=== PATIENT | female | born 1990 | race Two or more races ===

== ENCOUNTER 2022-09-04 17:30 | Observation (INO) | payer SELFPAY ==
[~2022-09-04] VITALS: Ht 62 cm; Wt 66.7 kg
[2022-09-04] MEDS ORDERED: PREN-96 PO (18:13)
[2022-09-04] MEDS ORDERED: TERBUTALINE SULFATE 1 MG/ML 1ML VIAL SC SCH (18:30)
== END 2022-09-04 19:07 | disposition home or self-care (01) ==
LOC: LDRP 17:30
PROVIDERS: ADMIT Obstetrics & Gynecology; ATTEND Obstetrics & Gynecology
DX: O60.03 Preterm labor without delivery, third trimester (principal); Z3A.33 33 weeks gestation of pregnancy; Z91.040 Latex allergy status
CPT/HCPCS: 59025; 81002; 94760; 96372; G0378; J3105

== ENCOUNTER 2022-10-23 08:56 | Observation (INO) | payer MEDICAID, OTHER ==
[~2022-10-23 08:56] MED LIST: PREN-96 PO
== END 2022-10-23 13:31 | disposition home or self-care (01) ==
LOC: LDRP 11:11 → UNDOADMOB 11:15 → UNDODISOB 13:31
PROVIDERS: ADMIT Obstetrics & Gynecology; ATTEND Obstetrics & Gynecology
DX: O62.9 Abnormality of forces of labor, unspecified (principal); Z3A.40 40 weeks gestation of pregnancy
CPT/HCPCS: 59025; 76818; 81002; 94760; G0378

== ENCOUNTER 2022-10-25 11:06 | Observation (INO) | payer MEDICAID | END 2022-10-25 13:11 | disposition home or self-care (01) | LOC: LDRP 11:06 → UNDOADMOB 11:08 → UNDODISOB 13:11 | PROVIDERS: ADMIT Obstetrics & Gynecology; ATTEND Obstetrics & Gynecology | DX: O48.0 Post-term pregnancy (principal); Z3A.40 40 weeks gestation of pregnancy | CPT/HCPCS: 59025; 76818; 81002; 94760; G0378 ==

== ENCOUNTER 2022-10-27 08:43 | Observation (INO) | payer MEDICAID | END 2022-10-27 15:15 | disposition home or self-care (01) | LOC: LDRP 13:09 | PROVIDERS: ADMIT Obstetrics & Gynecology; ATTEND Obstetrics & Gynecology | DX: O48.0 Post-term pregnancy (principal); O62.9 Abnormality of forces of labor, unspecified; Z3A.40 40 weeks gestation of pregnancy | CPT/HCPCS: 59025; 76818; 81002; 94760; G0378 ==

== ENCOUNTER 2022-10-29 12:00 | Inpatient (IN) | payer MEDICAID ==
[~2022-10-29] VITALS: Ht 157.5 cm; Wt 77.6 kg
[2022-10-29] MEDS ORDERED: BUTORPHANOL TARTRATE 2 MG/1 ML VIAL IV PRN ×2 (12:30)
[2022-10-29] MEDS ORDERED: LACTATED RINGER'S 1,000 ML IV SCH (12:30)
[2022-10-29] MEDS ORDERED: PHISODERM TOP SOLN 240ML BTL TOP PRN (12:30)
[2022-10-29] MEDS ORDERED: NALBUPHINE HCL 10 MG/1ml INJECTION IM PRN (12:30)
[2022-10-29] MEDS ORDERED: LIDOCAINE 2%HCL (LOCAL ANESTH.) INJ 20ML MDV IJ PRN (12:30)
[2022-10-29] MEDS ORDERED: PROMETHAZINE HCL 25 MG/ML 1ML IV PRN ×2 (12:30)
[2022-10-29] MEDS ORDERED: WITCH HAZEL-GLYCERIN PAD TOP PRN (12:30)
[2022-10-29] MEDS ORDERED: NALBUPHINE HCL 10 MG/1ml INJECTION IV PRN (12:30)
[2022-10-29] MEDS ORDERED: PROMETHAZINE HCL 25 MG/ML 1ML IM PRN (12:30)
[2022-10-29] MEDS ORDERED: DERMOPLAST 60ML BOTTLE TOP PRN (12:30)
[2022-10-29 13:28] LABS: Basophils # (auto) 0.1 10 ^3/uL (0-0.2); Basophils % (auto) 0.7 % (0.0-2.0); Eosinophils # (auto) 0.1 10 ^3/uL (0-0.8); Eosinophils % (auto) 0.8 % (0.0-7.0); Hematocrit 37.1 % (36.0-46.0); Hemoglobin 12.7 g/dL (12.2-16.2); Lymphocytes % (auto) 23.8 % (10.0-50.0); Mean Corpuscular Hemoglobin 29.6 pg (28.0-32.0); Mean Corpuscular Hgb Conc. 34.3 g/dL (32.0-36.0); Mean Corpuscular Volume 86.3 fL (80.0-100.0); Monocytes # (auto) 0.7 10 ^3/uL (0-1.3); Monocytes % (auto) 8.8 % (0.0-12.0); Neutrophils # (auto) 5.5 10 ^3/uL (1.6-8.6); Neutrophils % (auto) 65.9 % (37.0-80.0); Nucleated Red Blood Cells % 0.1 %; Red Cell Distribution Width 15.2 % (11.8-14.3); White Blood Cell 8.4 10^3/uL (4.4-10.8)
[2022-10-29 13:43] LABS: INR 0.88 (0.9-1.15); Partial Thromboplastin Time 28.1 sec (24.6-33.4)
[2022-10-29 13:45] LABS: Calcium 8.8 mg/dL (8.5-10.1); Potassium 4.1 mmol/L (3.5-5.1)
[2022-10-29 13:54] LABS: Urine Blood Negative /uL (Negative); Urine Specific Gravity 1.013 (1.001-1.035)
[2022-10-29 13:55] LABS: BUN/Creatinine Ratio 11.3; Bilirubin, Total 0.6 mg/dL (0.2-1.0); Total Protein 6.7 g/dL (6.4-8.2)
[2022-10-29 14:02] LABS: Alcohol, Urine < 3.0 mg/dL (0-10); Amphetamine Screen, Urine NEGATIVE (NEGATIVE); Barbiturate Scree,Urine NEGATIVE (NEGATIVE); Benzodiazephine Screen, Urine NEGATIVE (NEGATIVE); Cannabinoid Screen, Urine NEGATIVE (NEGATIVE); Cocaine Screen, Urine NEGATIVE (NEGATIVE); Opiate Scree,Urine NEGATIVE (NEGATIVE); Phencyclidine Screen, Urine NEGATIVE (NEGATIVE)
[2022-10-29] MEDS: LACTATED RINGER'S 1,000 ML IV SCH ×2 (14:12→19:47)
[2022-10-29] MEDS: miSOPROStol 50 MCG per PRE-CUT 1/2 TAB PO PRN ×3 (14:15→22:15)
[2022-10-30] MEDS: LACTATED RINGER'S 1,000 ML IV SCH ×3 (00:54→16:02)
[2022-10-30] MEDS: miSOPROStol 50 MCG per PRE-CUT 1/2 TAB PO PRN ×2 (02:17→06:37)
[2022-10-30] MEDS ORDERED: LACT. RINGERS/OXYTOCIN 20UNITS 1,000 ML IV SCH (10:15)
[2022-10-30] MEDS ORDERED: LACT. RINGERS/OXYTOCIN 20UNITS 500 ML IV ONE ×2 (12:00)
[2022-10-30] MEDS ORDERED: LACTATED RINGER'S 1,000 ML IV ONE (18:00)
[2022-10-30] MEDS ORDERED: ePHEDrine SULFATE 50 MG/ML AMP IV ONE (18:00)
[2022-10-30] MEDS ORDERED: ROPIVACAINE HCL 200 ML EPI SCH (18:00)
[2022-10-30] MEDS ORDERED: fentaNYL CITRATE 100 MCG/2 ML VL IV ONE (18:00)
[2022-10-30] MEDS ORDERED: LIDOCAINE HCL 2 %PF INJ 10ML AMP IJ ONE (18:00)
[2022-10-30] MEDS ORDERED: NALOXONE HCL 0.4 MG/ML VIAL IV ONE (18:00)
[2022-10-30] MEDS ORDERED: Lidocaine W-Epinephrine 1.5%-1:200,000 INJ 10ml Vial ONE (19:17)
[2022-10-30] MEDS ORDERED: ceFAZolin 2 GM in D5W 5% 100 ML IV STA (21:19)
[2022-10-30] MEDS: ACETAMINOPHEN 325 MG TAB PO PRN (21:38)
[2022-10-31] VITALS (17 sets, daily range): BP systolic 90–110; BP diastolic 50–70
[2022-10-31] MEDS: LACTATED RINGER'S 1,000 ML IV SCH ×3 (00:46→08:46)
[2022-10-31] MEDS: ACETAMINOPHEN 325 MG TAB PO PRN ×2 (01:30→05:46)
[2022-10-31] MEDS ORDERED: GENTAMICIN SULFATE 120 MG in D5W 5% 100 ML IV ONE (03:00)
[2022-10-31] MEDS ORDERED: AMPICILLIN SOD 2GM INJ 2 GM in SODIUM CHL 0.9% 100 ML IV SCH (03:00)
[2022-10-31] MEDS ORDERED: AMPICILLIN SOD 1 GM VL ONE (03:20)
[2022-10-31] MEDS ORDERED: SODIUM CHLORIDE 0.9% 200 ML IUPC ONE (03:30)
[2022-10-31] MEDS ORDERED: SODIUM CHLORIDE 0.9% 1,000 ML IUPC SCH (03:30)
[2022-10-31] MEDS ORDERED: GENTAMICIN SULF 80 MG/2 ML VIAL ONE (04:16)
[2022-10-31] MEDS ORDERED: ceFAZolin 1GM/50ML 50 ML IV SCH (06:00)
[2022-10-31] MEDS ORDERED: CARBOPROST TROMETHAMINE 250 MCG/1ML VIAL IM PRN (06:00)
[2022-10-31] MEDS ORDERED: ONDANSETRON HCL 4 MG/2 ML VIAL IV PRN ×3 (06:00→07:30)
[2022-10-31] MEDS ORDERED: METHYLERGONOVINE MALEATE 0.2 MG/ML AMP IM PRN (06:00)
[2022-10-31] MEDS ORDERED: miSOPROStol 100 mcg TAB SL PRN (06:00)
[2022-10-31] MEDS ORDERED: BUPIVACAINE 0.5% P/F INJ 10 ML VIAL ONE (06:04)
[2022-10-31] MEDS ORDERED: MORPHINE SULF PF 5 MG/10 ML VIAL ONE (06:05)
[2022-10-31] MEDS ORDERED: fentaNYL CITRATE 100 MCG/2 ML VL ONE (06:05)
[2022-10-31] MEDS ORDERED: ONDANSETRON HCL 4 MG/2 ML VIAL ONE (06:06)
[2022-10-31] MEDS ORDERED: ePHEDrine SULFATE 50 MG/ML AMP ONE (06:06)
[2022-10-31] MEDS ORDERED: KETOROLAC TROMETH 30 MG/ML 1ML VIAL ONE (06:06)
[2022-10-31] MEDS ORDERED: GLYCOPYRROLATE 0.2 MG/ML 1ML VIAL ONE (06:06)
[2022-10-31] MEDS ORDERED: oxyTOCIN 10 UNIT/ML 10ML VIAL ONE (06:06)
[2022-10-31 07:07] LABS: RPR Non Reactive (Non Reactive)
[2022-10-31] MEDS ORDERED: IBUP800T27 PO (07:28)
[2022-10-31] MEDS ORDERED: HYDR-4902 PO (07:28)
[2022-10-31] MEDS ORDERED: CEPH500T PO (07:28)
[2022-10-31] MEDS ORDERED: DOCU-94 PO (07:28)
[2022-10-31] MEDS ORDERED: FAMOTIDINE (10MG/ML) 2ML VL IV PRN (07:30)
[2022-10-31] MEDS ORDERED: KETOROLAC TROMETH 30 MG/ML 1ML VIAL IV PRN (07:30)
[2022-10-31] MEDS ORDERED: NALOXONE HCL 0.4 MG/ML VIAL IV PRN ×2 (07:30)
[2022-10-31] MEDS ORDERED: diphenhdrAMINE HCL 50 MG/1 ML VL IV PRN (07:30)
[2022-10-31] MEDS ORDERED: ACETAMINOPHEN IV 1000 MG/100ML (10MG/ML) IV PRN ×2 (09:30→10:00)
[2022-10-31] MEDS: AMPICILLIN SOD 2GM INJ 2 GM in SODIUM CHL 0.9% 100 ML IV SCH ×3 (09:43→16:53)
[2022-10-31] MEDS: DIPHENOXYLATE W/ATROPINE 2.5 MG TAB PO SCH ×2 (10:00→22:00)
[2022-10-31] MEDS: ACETAMINOPHEN IV 1000 MG/100ML (10MG/ML) IV PRN ×2 (10:04→21:55)
[2022-10-31] MEDS ORDERED: GENTAMICIN SULFATE 80 MG in D5W 5% 100 ML IV ONE (12:00)
[2022-10-31] MEDS ORDERED: GENTAMICIN SULFATE IV SCH ×2 (13:00)
[2022-10-31] MEDS ORDERED: SODIUM CHL 0.9% IV SCH ×2 (13:00)
[2022-10-31] MEDS: SODIUM CHL 0.9% IV SCH (13:34)
[2022-10-31] MEDS: GENTAMICIN SULFATE IV SCH (13:34)
[2022-11-01] VITALS (15 sets, daily range): BP systolic 90–108; BP diastolic 51–78
[2022-11-01] MEDS ORDERED: AMPICILLIN SOD 1 GM VL ONE (00:54)
[2022-11-01] MEDS: AMPICILLIN SOD 2GM INJ 2 GM in SODIUM CHL 0.9% 100 ML IV SCH ×4 (01:11→21:58)
[2022-11-01] MEDS: ACETAMINOPHEN IV 1000 MG/100ML (10MG/ML) IV PRN (05:54)
[2022-11-01 06:02] LABS: Basophils # (auto) 0 10 ^3/uL (0-0.2); Lymphocytes # (auto) 1.7 10 ^3/uL (0.4-5.4); Neutrophils # (auto) 16.8 10 ^3/uL (1.6-8.6)
[2022-11-01 06:05] LABS: Basophils % (auto) 0.2 % (0.0-2.0); Eosinophils # (auto) 0.1 10 ^3/uL (0-0.8); Eosinophils % (auto) 0.4 % (0.0-7.0); Hemoglobin 8.1 g/dL (12.2-16.2); Lymphocytes % (auto) 8.4 % (10.0-50.0); Mean Corpuscular Hemoglobin 29.5 pg (28.0-32.0); Mean Corpuscular Hgb Conc. 33.5 g/dL (32.0-36.0); Monocytes # (auto) 1.2 10 ^3/uL (0-1.3); Monocytes % (auto) 6.1 % (0.0-12.0); Neutrophils % (auto) 84.9 % (37.0-80.0); Red Blood Cells 2.73 10^6/uL (4.0-5.20); Red Cell Distribution Width 15.3 % (11.8-14.3); White Blood Cell 19.8 10^3/uL (4.4-10.8)
[2022-11-01] MEDS ORDERED: IBUPROFEN 800 MG TAB PO PRN (09:30)
[2022-11-01] MEDS ORDERED: HYDROcodone-ACET 5/325MG TAB PO PRN (09:30)
[2022-11-01] MEDS: DOCUSATE SOD 100 MG CAP PO SCH ×2 (10:00→21:57)
[2022-11-01] MEDS: SIMETHICONE 80 MG CHEWABLE TABLET PO SCH ×3 (12:00→21:57)
[2022-11-01] MEDS: GENTAMICIN SULFATE IV SCH (13:15)
[2022-11-01] MEDS: SODIUM CHL 0.9% IV SCH (13:15)
[2022-11-01] MEDS: HYDROcodone-ACET 5/325MG TAB PO PRN ×2 (13:35→18:25)
[2022-11-01] MEDS ORDERED: FER325T PO (15:59)
[2022-11-01] MEDS ORDERED: PREN-96 PO (15:59)
[2022-11-01] MEDS ORDERED: ASCO500T11 PO (15:59)
[2022-11-01] MEDS: SODIUM FERR GLUC 62.5MG/5ML 125 MG in SODIUM CHL 0.9% 100 ML IV SCH (17:37)
[2022-11-02 03:20] VITALS: BP 100/62
[2022-11-02] MEDS: AMPICILLIN SOD 2GM INJ 2 GM in SODIUM CHL 0.9% 100 ML IV SCH ×2 (03:55→10:36)
[2022-11-02] MEDS: SIMETHICONE 80 MG CHEWABLE TABLET PO SCH ×2 (05:44→14:07)
[2022-11-02 07:10] VITALS: BP 99/57
[2022-11-02] MEDS: DOCUSATE SOD 100 MG CAP PO SCH (09:47)
[2022-11-02] MEDS: SODIUM FERR GLUC 62.5MG/5ML 125 MG in SODIUM CHL 0.9% 100 ML IV SCH (10:35)
[2022-11-02 11:00] VITALS: BP 103/70
[2022-11-02 14:40] LABS: Basophils # (auto) 0 10 ^3/uL (0-0.2); Basophils % (auto) 0.3 % (0.0-2.0); Eosinophils # (auto) 0.1 10 ^3/uL (0-0.8); White Blood Cell 17.2 10^3/uL (4.4-10.8)
[2022-11-02 14:41] LABS: Eosinophils % (auto) 0.3 % (0.0-7.0); Hematocrit 24.4 % (36.0-46.0); Hemoglobin 8.4 g/dL (12.2-16.2); Lymphocytes # (auto) 2.2 10 ^3/uL (0.4-5.4); Lymphocytes % (auto) 12.7 % (10.0-50.0); Mean Corpuscular Hemoglobin 29.9 pg (28.0-32.0); Mean Corpuscular Hgb Conc. 34.3 g/dL (32.0-36.0); Monocytes # (auto) 0.6 10 ^3/uL (0-1.3); Monocytes % (auto) 3.5 % (0.0-12.0); Neutrophils # (auto) 14.3 10 ^3/uL (1.6-8.6); Neutrophils % (auto) 83.2 % (37.0-80.0); Red Blood Cells 2.81 10^6/uL (4.0-5.20); Red Cell Distribution Width 15.5 % (11.8-14.3)
[2022-11-02 14:58] VITALS: BP 116/74
[2022-11-02 16:00] VITALS: BP 112/79
== END 2022-11-02 17:08 | disposition home or self-care (01) | DRG 540 ==
LOC: LDRP 12:00
PROVIDERS: ADMIT Obstetrics & Gynecology; ATTEND Obstetrics & Gynecology
PROC: 10D00Z1 Extraction of Products of Conception, Low, Open Approach (ICD-10-PCS; principal; 2022-10-31 06:17)
DX: O48.0 Post-term pregnancy (principal); O41.1230 Chorioamnionitis, third trimester, not applicable or unspecified; D62 Acute posthemorrhagic anemia; Z20.822 Contact with and (suspected) exposure to COVID-19; O62.2 Other uterine inertia; O77.0 Labor and delivery complicated by meconium in amniotic fluid; O69.81X0 Labor and delivery complicated by cord around neck, without compression, not applicable or unspecified; Z37.0 Single live birth; Z3A.41 41 weeks gestation of pregnancy; O90.81 Anemia of the puerperium
CPT/HCPCS: 36415; 59025; 59200; 62282; 80053; 80170; 80307; 81002; 81003; 82565; 84112; 85025; 85610; 85730; 86592; 86850; 86870; 86880; 86900; 86901; 86905; 86906; 86971; 87426; 94762; 96360; 96361; 96365; 96366; 96375; G0378; J0131; J0690; J1885; J2405; J2590; J3490; J7060

== ENCOUNTER 2024-03-13 13:31 | Emergency (ER) | payer MEDICAID ==
[~2024-03-13] VITALS: Ht 160 cm; Wt 66.9 kg
[~2024-03-13 13:31] MED LIST changes: +ASCO500T11 PO; +CEPH500T PO; +DOCU-94 PO; +FER325T PO; +HYDR-4902 PO; +IBUP-1456 PO
[2024-03-13 14:32] VITALS: BP 127/85; PULSE 92; RESP 18; TEMP 98; O2SAT 97
[2024-03-13] MEDS: KETOROLAC TROMETH 60MG/2ML VIAL IM ONE (15:06)
[2024-03-13] MEDS ORDERED: IBUP-1454 PO (15:32)
[2024-03-13] MEDS ORDERED: BACL10TA PO (15:32)
== END 2024-03-13 16:16 | disposition home or self-care (01) ==
LOC: ER 13:31
DX: M43.6 Torticollis (principal); M54.2 Cervicalgia
CPT/HCPCS: 96372; 99283; J1885

== ENCOUNTER 2024-06-05 13:39 | Emergency (ER) | payer MEDICAID ==
[~2024-06-05] VITALS: Ht 154.9 cm; Wt 65.0 kg
[~2024-06-05 13:39] MED LIST changes: +BACL10TA PO; +IBUP-1454 PO
[2024-06-05 14:03] VITALS: BP 117/78; PULSE 78; RESP 16; O2SAT 97
[2024-06-05 15:40] LABS: Urine Bacteria None Seen /hpf (None Seen)
[2024-06-05 15:51] LABS: Urine Blood 3+ /uL (Negative); Urine Clarity Turbid (Clear); Urine Color Light-Orange (Yellow); Urine Protein, UAD 1+ (Negative); Urine Specific Gravity 1.019 (1.001-1.035); Urine Urobilinogen Normal (Negative); Urine WBC 45 /hpf (0 - 5); Urine pH 6.5 (5.0-9.0)
== END 2024-06-05 16:37 | disposition home or self-care (01) ==
LOC: ER 13:51
DX: O20.8 Other hemorrhage in early pregnancy (principal); R10.2 Pelvic and perineal pain; Z3A.01 Less than 8 weeks gestation of pregnancy; Z79.1 Long term (current) use of non-steroidal anti-inflammatories (NSAID)
CPT/HCPCS: 36415; 81001; 84702